=== PATIENT | female | born 1985 | race Caucasian/White ===

== ENCOUNTER 2017-12-11 07:48 | Outpatient (CLI) | payer BC ==
--- NOTE | 2017-12-11 11:52 | MRI ---
MRI LEFT ANKLE WITHOUT CONTRAST: HISTORY: Posterior tibial tendon dysfunction. Injured ankle a week ago. Having ankle pain. COMPARISON: None. FINDINGS: LIGAMENTS: The AITFL and PITFL are intact. The ATFL is intact. CFL is intact. The superficial and deep deltoid ligaments are intact. Spring ligament is intact. TENDONS: The Achilles tendon is intact. Low-grade retrocalcaneal bursa effusion. There is flattening of the peroneus brevis tendon at the lateral malleolus with mild tendinosis. No definite longitudinal split tear is appreciated. There is abnormal fluid signal at the insertion of the posterior tibial tendon upon the navicular. T he distal insertional branches are intact. The extensor tendons are intact. BONES: No fracture. No malalignment. No chest edema. IMPRESSION: 1. High-grade tear of the posterior tibial tendon at the insertion of the navicular. The distal ins ertional branches are intact. 2. Intact spring ligament. 3. No evidence of developing flat foot deformity. 4. Low-grade retrocalcaneal bursitis with intact Achilles tendon. 5. Mild flattening of the peroneus brevis tendon at the lateral malleolus with normal location, norm al appearance to the fibro-osseous ridge, and intact peritoneal retinaculum. This is associated with some mild tendinosis. The patient is at risk for developing a longitudinal split tear. POS: RYAN
== END 2017-12-11 07:49 | disposition home or self-care (01) ==
LOC: SCSMRI 07:48
PROVIDERS: ATTEND Podiatrist Foot & Ankle Surgery
DX: M67.874 Other specified disorders of tendon, left ankle and foot (principal); S96.812A Strain of other specified muscles and tendons at ankle and foot level, left foot, initial encounter; M77.52 Other enthesopathy of left foot and ankle